=== PATIENT | female | born 1995 ===

== ENCOUNTER 2017-01-04 21:54 | Emergency (ER) | payer BC ==
[2017-01-04 23:24] VITALS: RESP 18
--- NOTE | 2017-01-04 23:39 | C.PDOC ---
History Of Present Illness 21 yo female w/o significant PMHx come in for evaluation of retrosternal tightness/burning gradually developed for past hour associated with SOB. Pt admits, similar sx in past " few weeks ago" when was seen by PMD, had EKG done with normal results. Pt reports, no radiation of pain, no palpitation, diaphoresis, Denies previous hx of cardiac ds,denies recent illness, fever, chills, headache, dizziness, cough, wheezing, abd. pain, N/V/D, NO risk factors for DVT or PE. At present time, pt reports moderate improvement in pain" improves with Time". Awake, not in any apparent distress. Time Seen by Provider: 01/04/17 23:11 Chief Complaint (Nursing): Chest Pain History Per: Patient Onset/Duration Of Symptoms: Gradual Current Symptoms Are (Timing): Better Past Medical History Reviewed: Historical Data, Nursing Documentation, Vital Signs Vital Signs: Last Vital Signs Temp 98.1 F 01/04/17 23:18 Pulse 58 L 01/04/17 23:18 Resp 18 01/04/17 23:18 BP 132/75 01/04/17 23:18 Pulse Ox 100 01/04/17 23:38 - Medical History PMH: No Chronic Diseases Denies: Asthma, Bronchitis, CAD, CVA, Diabetes, Deep Vein Thrombosis Surgical History: No Surg Hx Family History: States: No Known Family Hx Denies: NH, CAD, Diabetes - Social History Hx Tobacco Use: No Hx Alcohol Use: No Hx Substance Use: No - Immunization History Hx Tetanus Toxoid Vaccination: No Hx Influenza Vaccination: No Hx Pneumococcal Vaccination: No Review Of Systems Except As Marked, All Systems Reviewed And Found Negative. Constitutional: Negative for: Fever, Chills ENT: Negative for: Throat Pain Cardiovascular: Positive for: Chest Pain. Negative for: Palpitations, Orthopnea , Edema, Light Headedness Respiratory: Positive for: Shortness of Breath. Negative for: Cough, SOB with Excertion, Wheezing Gastrointestinal: Negative for: Nausea, Vomiting, Abdominal Pain Genitourinary: Negative for: Dysuria, Frequency, Incontinence Musculoskeletal: Negative for: Neck Pain, Back Pain Skin: Negative for: Rash Neurological: Negative for: Weakness, Numbness, Altered Mental Status, Headache , Dizziness Physical Exam - Physical Exam Appears: Well, Non-toxic, No Acute Distress Skin: Normal Color, Warm, Dry, No Rash Eye(s): bilateral: Normal Inspection Nose: Normal, No Discharge Oral Mucosa: Moist, No Drooling Tongue: Normal Appearing Lips: Normal Appearing Throat: Normal, No Erythema, No Exudate, No Drooling Neck: Normal, Normal ROM, Supple Cardiovascular: Rhythm Regular, No Friction Rub, No Murmur Respiratory: Normal Breath Sounds, No Stridor, No Wheezing Gastrointestinal/Abdominal: Normal Exam, Soft, Tenderness (mild epigastric tenderness.), No Distention, No Guarding, No Rebound Back: Normal Inspection, No CVA Tenderness Extremity: Normal ROM, No Pedal Edema Neurological/Psych: Oriented x3, Normal Speech ED Course And Treatment ECG: Interpreted By Me, Viewed By Me ECG Rhythm: Sinus Rhythm ECG Interpretation: Normal Interpretation Of ECG: SR@61/min, NAD, no acute T wave or ST-T changes. O2 Sat by Pulse Oximetry: 100 Pulse Ox Interpretation: Normal - Radiology CXR: Interpreted by Me, Viewed By Me CXR Interpretation: Yes: No Acute Disease, Heart Size (normal). No: Infiltrates , Mediastinum, Cardiomegaly Progress Note: On re-evaluation, pt is afebrile, hemodynamicaly stable. Non- toxic. Tolerate Po well in ED. PusleOx 100% RA. ENT: no acute findings. Lungs : CTA B/L, BS equal B/L. Neck: (-) meningeal sign. CVS: (+)S1S2, reg. Abd: benign. CXR, EKG- normal study. Pt has clinical findings c/w retrosternal pain , nos. Pt advised. ref. to F/u with PMD and cardiology In 2-3 days for re- eavl. return if any worsening or new changes. Disposition Counseled Patient/Family Regarding: Studies Performed, Diagnosis, Need For Followup, Rx Given - Disposition Referrals: [facility] [Outside] Abbi Edmondson MD [Staff Provider] - Disposition: HOME/ ROUTINE Disposition Time: 23:38 Condition: STABLE Additional Instructions: Follow up with PMD and Cardiology in 2-3 days for re-evaluation. Return to ED if any worsening or new changes. Instructions: Chest Pain (ED) - Clinical Impression Clinical Impression: Chest pain
[2017-01-05 00:25] VITALS: BP 107/73; PULSE 57; TEMP 98; O2SAT 96
--- NOTE | 2017-01-05 08:45 | RAD ---
HISTORY: pain COMPARISON: No prior. TECHNIQUE: Chest PA and lateral FINDINGS: LUNGS: No active pulmonary disease. PLEURA: No significant pleural effusion identified. No pneumothorax apparent. CARDIOVASCULAR: Normal. OSSEOUS STRUCTURES: No significant abnormalities. VISUALIZED UPPER ABDOMEN: Normal. OTHER FINDINGS: None. IMPRESSION: No active disease.
--- NOTE | 2017-01-06 23:34 | CARD ---
APPROVED REPORT EKG Measurement Heart [id number] <Conclusion> Normal sinus rhythm with sinus arrhythmia Normal ECG
== END 2017-01-05 00:24 | disposition home or self-care (01) ==
LOC: C.ER 21:54
DX: R07.89 Other chest pain (principal)